=== PATIENT | female | born 1990 | race Caucasian/White ===

== ENCOUNTER 2017-08-05 02:51 | Emergency (ER) | payer SELFPAY ==
[~2017-08-05] VITALS: Ht 157.5 cm; Wt 53.5 kg
--- NOTE | 2017-08-05 03:10 | NUR ---
PT IN BED. PT IS A&OX4. PT'S BREATH SOUNDS ARE CLEAR AND UNLABORED. PT ABLE TO MAKE NEEDS KNOWN. NO SIGNS OF DISTRESS AT THIS TIME
--- NOTE | 2017-08-05 03:24 | NUR ---
PT IN ROUTE TO CT IN [facility] WITH TRANSPORTER
--- NOTE | 2017-08-05 03:40 | NUR ---
PT RETURNED FROM CT IN [facility] WITH TRANSPORTER
[2017-08-05] MEDS ORDERED: IBUPROFEN 600 MG TABLET ONE (04:41)
[2017-08-05] MEDS ORDERED: IBUPROFEN 600 MG TABLET PO ONE (04:45)
--- NOTE | 2017-08-05 04:50 | NUR ---
Patient discharged to home in stable conditon. Patient reported being free of pain prior to discharge. Written and verbal after care instructions given. Patient verbalizes understanding of instructions. Patient able to ambulate unassisted with steady gait. Patient left with all personal belongings.
[2017-08-05 04:56] VITALS: BP 123/74
== END 2017-08-05 04:50 | disposition home or self-care (01) ==
LOC: ER 02:59
DX: S16.1XXA Strain of muscle, fascia and tendon at neck level, initial encounter (principal); S13.4XXA Sprain of ligaments of cervical spine, initial encounter; S20.219A Contusion of unspecified front wall of thorax, initial encounter; V43.62XA Car passenger injured in collision with other type car in traffic accident, initial encounter; Y93.89 Activity, other specified; Y92.410 Unspecified street and highway as the place of occurrence of the external cause; Y99.8 Other external cause status
CPT/HCPCS: 70450; 72125; A4663